=== PATIENT | male | born 1950 | race Caucasian/White ===

== ENCOUNTER 2024-03-13 06:37 | Outpatient (RCR) | payer OTHER, SELFPAY | END 2024-03-13 23:59 | disposition home or self-care (01) | LOC: RPT 06:37 | PROVIDERS: ATTENDING PHYSICIAN Orthopaedic Surgery; FAMILY PHYSICIAN Internal Medicine | DX: M25.512 Pain in left shoulder (principal); Z73.6 Limitation of activities due to disability; M77.8 Other enthesopathies, not elsewhere classified | CPT/HCPCS: 97010; 97110; 97112; 97140; 97162 ==

== ENCOUNTER 2024-04-13 09:50 | Outpatient (RCR) | payer OTHER, SELFPAY | END 2024-04-13 23:59 | disposition home or self-care (01) | LOC: RPT 09:50 | PROVIDERS: ATTENDING PHYSICIAN Orthopaedic Surgery; FAMILY PHYSICIAN Internal Medicine | DX: M25.512 Pain in left shoulder (principal); Z73.6 Limitation of activities due to disability | CPT/HCPCS: 97010; 97110; 97112; 97140 ==

== ENCOUNTER → 2024-04-24 09:51 | Outpatient (REF) | payer OTHER, SELFPAY | LOC: MRI 3T 09:51 | PROVIDERS: ATTENDING PHYSICIAN Physician Assistant; FAMILY PHYSICIAN Internal Medicine | DX: M25.512 Pain in left shoulder (principal) | CPT/HCPCS: 73221 ==

== ENCOUNTER 2024-04-27 09:31 | Outpatient (RCR) | payer OTHER, SELFPAY | END 2024-04-27 23:59 | disposition home or self-care (01) | LOC: RPT 09:31 | PROVIDERS: ATTENDING PHYSICIAN Orthopaedic Surgery; FAMILY PHYSICIAN Internal Medicine | DX: M25.512 Pain in left shoulder (principal); Z73.6 Limitation of activities due to disability | CPT/HCPCS: 97110; 97112 ==

== ENCOUNTER 2024-09-12 15:48 | Outpatient (RCR) | payer OTHER, SELFPAY | END 2024-09-12 23:59 | disposition home or self-care (01) | LOC: RPT 15:48 | PROVIDERS: ATTENDING PHYSICIAN Physician Assistant Surgical | DX: Z47.1 Aftercare following joint replacement surgery (principal); Z96.612 Presence of left artificial shoulder joint; Z73.6 Limitation of activities due to disability | CPT/HCPCS: 97010; 97110; 97140; 97161 ==

== ENCOUNTER 2024-10-12 09:44 | Outpatient (RCR) | payer OTHER, SELFPAY | END 2024-10-12 23:59 | disposition home or self-care (01) | LOC: RPT 09:44 | PROVIDERS: ATTENDING PHYSICIAN Physician Assistant Surgical | DX: Z47.1 Aftercare following joint replacement surgery (principal); Z96.612 Presence of left artificial shoulder joint; M62.81 Muscle weakness (generalized); Z73.6 Limitation of activities due to disability | CPT/HCPCS: 97010; 97110; 97112; 97140 ==

== ENCOUNTER 2024-10-29 08:46 | Outpatient (RCR) | payer OTHER, SELFPAY | END 2024-10-30 10:54 | disposition home or self-care (01) | LOC: RPT 08:46 | PROVIDERS: ATTENDING PHYSICIAN Physician Assistant Surgical | DX: Z47.1 Aftercare following joint replacement surgery (principal); Z96.612 Presence of left artificial shoulder joint; Z73.6 Limitation of activities due to disability; M62.81 Muscle weakness (generalized) | CPT/HCPCS: 97010; 97110; 97112; 97140 ==

== ENCOUNTER 2025-05-16 06:57 | Day surgery (SDC) | payer OTHER, SELFPAY | END 2025-05-16 09:15 | disposition home or self-care (01) | LOC: CATH 06:57 | PROVIDERS: ATTENDING PHYSICIAN Internal Medicine Cardiovascular Disease; FAMILY PHYSICIAN Internal Medicine; OTHER PHYSICIAN Internal Medicine Cardiovascular Disease | DX: I48.91 Unspecified atrial fibrillation (principal); E03.9 Hypothyroidism, unspecified; E78.5 Hyperlipidemia, unspecified; J45.20 Mild intermittent asthma, uncomplicated; M19.90 Unspecified osteoarthritis, unspecified site; M48.00 Spinal stenosis, site unspecified; M85.80 Other specified disorders of bone density and structure, unspecified site; K22.70 Barrett's esophagus without dysplasia; Z87.19 Personal history of other diseases of the digestive system; K21.9 Gastro-esophageal reflux disease without esophagitis; K90.0 Celiac disease; I08.3 Combined rheumatic disorders of mitral, aortic and tricuspid valves; Z79.01 Long term (current) use of anticoagulants | CPT/HCPCS: 93312; 93320; 93325 ==

== ENCOUNTER 2025-06-27 07:13 | Day surgery (SDC) | payer OTHER, SELFPAY ==
--- NOTE | 2025-06-25 09:35 | HPS.HSE ---
Family Physician
-
Family Physician: NO INTERVIEW UNKNOWN
Chief Complaint
-
Persistent atrial fibrillation. Left atrial appendage thrombus.
History of Present Illness
The patient is a 74 year old male presenting today for persistent atrial fibrillation. The patient reports occasional dizziness and fatigue likely secondary to this diagnosis. An event monitor in 2023 demonstrated a 100% atrial
fibrillation burden. He was scheduled to undergo pulmonary vein isolation in early May 2025; however, this was cancelled after his pre-procedural chest CT and subsequent transesophageal echocardiogram confirmed the presence of a left atrial
appendage thrombus. He reports he has been strictly compliant with Eliquis over the last 6 weeks. He will undergo a repeat transesophageal echocardiogram to see if his thrombus has resolved. He denies any current complaints today such as chest pain,
shortness of breath at rest, palpitations, nausea, vomiting, diarrhea, lightheadedness, cough, sore throat, or fever.
Medical History
Past Medical History
Past Medical History: Reports Other
Additional Past Medical History:
1. Persistent atrial fibrillation, oral anticoagulation with Eliquis.
2. Left atrial appendage thrombus on transesophageal echocardiogram 05/16/2025.
3. Hyperlipidemia.
4. Mild-moderate valvular disease.
5. Asthma, mild and intermittent.
6. GERD.
7. Sharpe's esophagus.
8. Celiac disease.
9. Hypothyroidism.
10. Spinal stenosis.
11. Osteoarthritis, status post right total knee arthroplasty, 07/2023, and left total shoulder arthroplasty 07/2024.
12. Osteopenia.
Past Surgical History: Reports Other
Additional Past Surgical History:
1. Transesophageal echocardiogram.
2. Right total knee arthroplasty,
3. Left total shoulder arthroplasty.
4. Appendectomy.
5. Hemorrhoidectomy.
Social History
Tobacco: Non-smoker
Alcohol: Occasional
Living: Alone (in a 2 story home. )
Family History
Family History: Not pertinent
Allergies / Home Medications
Allergy/Medication List:
Home medications: Eliquis 5 mg p.o. twice a day.
Allergies: Gluten. Omeprazole.
Review of Systems
-
A 12 point ROS was completed and negative except as noted: Yes
Physical Exam
Vital Signs
Blood pressure 129/76. Heart rate 57. Respirations 18. Pulse ox 97% on room air.
Physical Exam
General: Well Developed, Well Nourished and No Apparent Distress
HEENT: NormoCephalic, Moist mucous membranes, Atraumatic and PERRLA
Respiratory: Clear
Cardiac: Irregular Rhythm
GI: Soft, Non Tender and Non Distended
Musculoskeletal: No Edema and Normal Gait & Station
Skin: Warm and Dry
Neuro: AO x 3 and Nonfocal/grossly intact
Laboratory Results
-
Transesophageal echocardiogram 05/16/2025: Normal left ventricular size, wall thickness, and systolic function. No regional wall motion abnormalities are seen. The ejection fraction is estimated at 55-60%. Normal right ventricular size and function.
Dense spontaneous echo contrast and possible early thrombus in the left atrial appendage. Peak velocities within the left atrial appendage are reduced. Mild mitral regurgitation with dilated left atrium. Mild to moderate eccentric tricuspid
regurgitation.
Impression/Plan
-
IMPRESSION/PLAN:
1. Persistent atrial fibrillation, left atrial appendage thrombus: The patient is in need of a transesophageal echocardiogram with Dr. Manuel Brenner on 06/27/2025. The benefits and risks of the procedure have been explained to the patient. The
patient understands these risks and wishes to proceed. Should his transesophageal echocardiogram show resolution of his thrombus, the patient would like to proceed with pulmonary vein isolation for symptomatic atrial fibrillation in the near future.
Strict compliance with Eliquis was advised prior to his DYLAN.
== END 2025-06-27 09:15 | disposition home or self-care (01) ==
LOC: CATH 07:13
PROVIDERS: ATTENDING PHYSICIAN Internal Medicine Cardiovascular Disease; FAMILY PHYSICIAN Internal Medicine; OTHER PHYSICIAN Internal Medicine Cardiovascular Disease
DX: I48.19 Other persistent atrial fibrillation (principal); I08.2 Rheumatic disorders of both aortic and tricuspid valves; E78.5 Hyperlipidemia, unspecified; J45.909 Unspecified asthma, uncomplicated; K21.9 Gastro-esophageal reflux disease without esophagitis; K90.0 Celiac disease; E03.9 Hypothyroidism, unspecified; M19.90 Unspecified osteoarthritis, unspecified site; Z79.01 Long term (current) use of anticoagulants
CPT/HCPCS: 93312; 93320; 93325

== ENCOUNTER 2025-10-01 09:25 | Day surgery (SDC) | payer OTHER, SELFPAY ==
[2025-10-01 10:53] VITALS: BMI 27.4
[2025-10-01 12:35] LABS: INR 1.70; PT 20.1 Sec (11.4-14.6)
== END 2025-10-01 13:30 | disposition home or self-care (01) ==
LOC: CATH 09:25
PROVIDERS: ATTENDING PHYSICIAN Internal Medicine Cardiovascular Disease; FAMILY PHYSICIAN Internal Medicine; OTHER PHYSICIAN Internal Medicine Cardiovascular Disease
DX: I48.91 Unspecified atrial fibrillation (principal); Z79.01 Long term (current) use of anticoagulants; E03.9 Hypothyroidism, unspecified; Z53.09 Procedure and treatment not carried out because of other contraindication
CPT/HCPCS: 85610